=== PATIENT | male | born 1980 ===

== ENCOUNTER → 2018-11-13 20:58 | Outpatient (ROUT) | payer OTHER, SELFPAY ==
[2018-11-16 13:38] LABS: RPR Screen Nonreactive (Nonreactive)
== END ==
PROVIDERS: Visit Provider Family Medicine
DX: Z11.1 Encounter for screening for respiratory tuberculosis (principal); Z11.3 Encounter for screening for infections with a predominantly sexual mode of transmission
CPT/HCPCS: 36415; 86480; 86592; 87591